=== PATIENT | male | born 1975 | race Caucasian/White ===

== ENCOUNTER 2022-01-31 15:53 | Emergency (ER) | payer OTHER ==
[~2022-01-31] VITALS: Ht 170.2 cm; Wt 63.0 kg
[2022-01-31] MEDS ORDERED: MORPHINE SULFATE 2 MG/ML INJ. IVP ONE (16:30)
--- NOTE | 2022-01-31 16:46 | PHYS DOC ---
Past Medical History Past Medical History: No Pertinent History Past Surgical History: No Surgical History General Adult EDM: Chief Complaint: ANIMAL BITE HPI: HPI: Patient is a 46-year-old male who presents today with a dog bite to his left hand. Patient states that his roommates dog and another dog were fighting and he tried to break them up and his roommates dog bit him in the hand. Patient states the dog is up-to-date on all immunizations and a boxer in the breed. Patient states his last tetanus shot was less than 5 years ago. Patient states he is right-hand dominant Review of Systems: Review of Systems: Constitutional: Denies fever or chills. [] Eyes: Denies change in visual acuity. [] HENT: Denies nasal congestion or sore throat. [] Respiratory: Denies cough or shortness of breath. [] Cardiovascular: Denies chest pain or edema. [] GI: Denies abdominal pain, nausea, vomiting, bloody stools or diarrhea. [] : Denies dysuria. [] Muscloskeletal: Dog bite to left hand Integument: Denies headache, focal weakness or sensory changes. [] Endocrine: Denies polyuria or polydipsia. [] Lymphatic: Denies swollen glands. [] Psychiatric: Denies depression or anxiety. [] Heart Score: C/O Chest Pain: No Risk Factors: Risk Factors: DM, Current or recent (<one month) smoker, HTN, HLP, family history of CAD, obesity. Risk Scores: Score 0 - 3: 2.5% MACE over next 6 weeks - Discharge Home Score 4 - 6: 20.3% MACE over next 6 weeks - Admit for Clinical Observation Score 7 - 10: 72.7% MACE over next 6 weeks - Early Invasive Strategies Current Medications: Current Medications Medications (Trade) Dose Ordered Sig/[facility] Start Time Stop Time Status Last Admin Dose Admin Morphine Sulfate (Morphine Sulfate) 2 mg 1X ONCE 01/31/22 16:30 01/31/22 16:33 DC Allergies: Allergies: Allergies Coded Allergies Type Severity Reaction Last Updated Verified No Known Drug Allergies 01/31/22 No Physical Exam: PE: Constitutional: Well developed, well nourished, no acute distress, non-toxic appearance. [] HENT: Normocephalic, atraumatic, bilateral external ears normal, oropharynx moist, no oral exudates, nose normal. [] Eyes: PERRLA, EOMI, conjunctiva normal, no discharge. [] Neck: Normal range of motion, no tenderness, supple, no stridor. [] Cardiovascular:Heart rate regular rhythm, no murmur [] Lungs & Thorax: Bilateral breath sounds clear to auscultation [] Abdomen: Bowel sounds normal, soft, no tenderness, no masses, no pulsatile masses. [] Skin: Puncture wound/laceration noted over the fifth metacarpal of the left hand and first metacarpal left hand Back: No tenderness, no CVA tenderness. [] Extremities: Left hand is swollen and tender to touch, sensory is intact distal to the injuries, patient is able to flex and extend fingers, cap refill is less than 2 seconds radial pulse is 2+ Neurologic: Alert and oriented X 3, normal motor function, normal sensory function, no focal deficits noted. [] Psychologic: Affect normal, judgement normal, mood normal. [] Current Patient Data: Vital Signs: Vital Signs Date Time Temp Pulse Resp B/P (MAP) Pulse Ox O2 Delivery O2 Flow Rate FiO2 01/31/22 17:24 24 100 01/31/22 16:57 24 99 Room Air 01/31/22 16:56 98.1 87 24 133/97 (109) 99 Room Air 98.1 EKG: EKG: [] Radiology/Procedures: Radiology/Procedures: REASON: dog bite PROCEDURE: HAND LEFT 3V Exam: XR HAND_LEFT 3 VIEWS History: Dog bite Comparison: None. Findings: Osseous mineralization is normal. There is an displaced oblique fracture of the fourth metacarpal with approximately 1.2 cm radial displacement of the metacarpal diaphysis. [place] radial and volar angulation. There is at least one small comminuted fragment. There are adjacent areas of subcutaneous emphysema consistent with penetrating injury. No radiopaque foreign body. Impression: 1. Displaced and angulated oblique fracture of the fourth metacarpal with minimal comminution. History of dog bite and subcutaneous emphysema suggests this should be treated as an open fracture. Electronically signed by: Sudeep Purdy MD (01/31/2022 4:56 PM) [id number] Suture placement Indication: Dog bite x2 Procedure: Patient was placed in a supine position, lidocaine 2% 10 mL was infiltrated into 2 lacerations: #1 laceration is over the fourth midshaft metacarpal area, #2 laceration is over the second distal metacarpal, after the area was appropriately anesthetized #1 wound was irrigated with 160 mL of normal saline with Betadine solution, #2 laceration was irrigated with approximately 160 mL of normal saline with Betadine solution, areas were then cleansed and #1 laceration had two 3-0 Ethilon placed loosely approximating the wound, #2 lac eration had two 3-0 Ethilon loosely approximated sutures placed. Dressings of iodoform gauze and a nonadherent dressing were placed, a short arm ulnar gutter splint was placed by myself stabilizing the wound. Total repaired wound length: #1 laceration is 2cm in length, #2 laceration is 2.5cm in length. The patient tolerated the procedure well. [] Course & Med Decision Making: Course & Med Decision Making Pertinent Labs and Imaging studies reviewed. (See chart for details) [address] Oneill regarding this patient she made recommendations to wash the wound with normal saline and Betadine, loosely approximate the wound after irrigation, place a dressing on there, splint the wound with an ulnar gutter splint and discharge the patient home with oral antibiotics and pain medication. Dr. Oneill states that she will see the patient on Saturday for further evaluation and management. 191 I placed a left ulnar gutter splint, post procedure neurovascular was intact distal to the injury cap refill was less than 2 seconds in all fingers, 1930 I reviewed discharge instructions with patient which include leaving the splint in place and keeping it clean and dry, patient is to keep it elevated and wear sling if up and about, ice 20 minutes on 3-4 times daily, patient is to take Augmentin 875 mg 1 tablet twice daily for 10 full days, I will give him prescriptions for Motrin and hydrocodone to help control his pain, patient is to call Dr. Oneill's office [phone] tomorrow for an appointment on Saturday per Dr. Oneill instructions for further evaluation and management of this dog bite and fracture. Patient verbalized understanding of this and is agreeable with the plan of care. Wallace Disclaimer: Wallace Disclaimer: This electronic medical record was generated, in whole or in part, using a voice recognition dictation system. Departure Departure Impression: Primary Impression: Dog bite of left hand Qualified Codes: S61.452A - Open bite of left hand, initial encounter; W54.0XXA - Bitten by dog, initial encounter Additional Impression: Fracture, metacarpal shaft, open Qualified Codes: S62.325B - Displaced fracture of shaft of fourth metacarpal bone, left hand, initial encounter for open fracture Disposition: 01 HOME / SELF CARE / HOMELESS Condition: STABLE Referrals: PAZ ONEILL MD Patient Instructions: Animal Bite, Cast or Splint Care, Hand Fracture Additional Instructions: Augmentin 875 mg take 1 tablet twice daily for 10 full days Hydrocodone take 1 tablet every 6 hours as needed for severe pain, use with caution may cause drowsiness do not operate heavy machinery Motrin 600 mg take 1 tablet every 6 hours as needed for mild to moderate pain, take with food may cause stomach upset if taken on an empty stomach Keep the splint clean and dry and in place until you are seen by Dr. Oneill Call Dr. Oneill's office tomorrow at [phone] and let them know that you were seen in the emergency department and Dr. Oneill instructed you to call for an appointment on Saturday Return to the emergency department for increased pain, development of a fever, any numbness or tingling or bluing of your fingers [facility] [address] [place] [address] [facility] [address] [place] [address] [facility] [address] [facility] [address] [facility] [address] [place] [address] [facility] [address] [place] [address] [address] [place] [address] [address] [place] [address] [place] [address] [facility] [address] [place] [address] [facility] [address] [place] [address] [facility] [address] [place] [address] Scripts Ibuprofen (IBUPROFEN) 600 Mg Tablet 600 MG PO PRN Q6HRS PRN for INFLAMMATION, #30 TAB Prov: LAINEY BULL WINDOWS SERVER SUPPORT TECHNICIAN 01/31/22 Hydrocodone Bit/Acetaminophen (HYDROCODONE-APAP 5-325 ) 1 Tab Tablet 1 TAB PO PRN Q6HRS PRN for PAIN, #20 TAB 0 Refills Prov: LAINEY BULL APRN 01/31/22 Amoxicillin/Potassium Clav (AUGMENTIN 875-125 TABLET) 1 Each Tablet 1 TAB PO BID for 10 Days, #20 TAB 0 Refills Prov: LAINEY BULL APRN 01/31/22 LAINEY BULL APRN January 31, 2022 16:46
--- NOTE | 2022-01-31 16:59 | RAD ---
Exam: XR HAND_LEFT 3 VIEWS History: Dog bite Comparison: None. Findings: Osseous mineralization is normal. There is an displaced oblique fracture of the fourth metacarpal wit h approximately 1.2 cm radial displacement of the metacarpal diaphysis. [place] radial and volar angulat ion. There is at least one small comminuted fragment. There are adjacent areas of subcutaneous emphys oma consistent with penetrating injury. No radiopaque foreign body. Impression: 1. Displaced and angulated oblique fracture of the fourth metacarpal with minimal comminution. Histo ry of dog bite and subcutaneous emphysema suggests this should be treated as an open fracture. Electronically signed by: Sudeep Purdy MD (01/31/2022 4:56 PM) [id number]
[2022-01-31] MEDS ORDERED: ceFAZolin SODIUM IV Push 1 GM VIAL. IVP ONE (17:00)
[2022-01-31] MEDS ORDERED: LIDOCAINE 2%/EPI 1:100,000 20 ML VIAL. INJ ONE (17:00)
[2022-01-31] MEDS ORDERED: HYDROmorphone 2 MG/ML INJ. IVP ONE (17:15)
[2022-01-31 19:30] VITALS: BP 118/69
[2022-01-31] MEDS ORDERED: HYDR-2761 PO (19:36)
[2022-01-31] MEDS ORDERED: AMOX1TAB61 PO (19:36)
[2022-01-31] MEDS ORDERED: IBUP-1007 PO (19:36)
== END 2022-01-31 20:04 | disposition home or self-care (01) ==
LOC: ER 15:53
DX: S62.325B Displaced fracture of shaft of fourth metacarpal bone, left hand, initial encounter for open fracture (principal); W54.0XXA Bitten by dog, initial encounter; Y93.89 Activity, other specified; Y92.89 Other specified places as the place of occurrence of the external cause; Y99.8 Other external cause status
CPT/HCPCS: 12002; 73130; 96374; 96375; 99284; J0690; J1170; J2270; J3490